=== PATIENT | female | born 1935 | race Caucasian/White ===

== ENCOUNTER 2016-06-21 16:53 | Emergency (ER) | payer MEDICARE, MEDICAID ==
[~2016-06-21] VITALS: Ht 154.9 cm; Wt 59.0 kg
[~2016-06-21 16:53] MED LIST: ACE325RS; ACYC400T; AMIT25TA9 PO; AMITRIP; ASCO500C3; ATARAX; FENT12DI; FENT12DI TD; FLUO20CA19 PO; HYDR-3682 PO; HYDR200T36 PO; HYDR25CA; LAMOTIL; LEVO112T4 PO; LEVO125T6; LISI-206; LISI10TA6 PO; NOR5T; OME20GT; PANC12002; PREDPOW63 PO; PROZAC; QUESTRAN
[2016-06-21 17:30] VITALS: BP 97/52
[2016-06-21 19:59] LABS: Basophils # (auto) 0 uL; Basophils % (auto) 0.1 % (0.0-2.0); Eosinophils # (auto) 0.1 uL; Eosinophils % (auto) 0.5 % (0.0-7.0); Hematocrit 39.6 % (36.0-46.0); Lymphocytes # (auto) 1.2 uL; Lymphocytes % (auto) 8.8 % (10.0-50.0); Mean Corpuscular Hemoglobin 28.4 pg (28.0-32.0); Mean Corpuscular Hgb Conc. 32.7 g/dL (32.0-36.0); Mean Corpuscular Volume 86.6 fL (80.0-100.0); Mean Platelet Volume 9.4 fL (7.4-10.4); Monocytes % (auto) 7.5 % (0.0-12.0); Neutrophils # (auto) 11.4 uL; Neutrophils % (auto) 83.1 % (37.0-80.0); Platelet Count (auto) 301 10^3/uL (140-450); Red Cell Distribution Width 15.5 % (11.6-16.0); White Blood Cell 13.7 10^3/uL (4.4-10.8)
[2016-06-21 20:07] LABS: Albumin 2.8 g/dL (3.4-5.0); BUN/Creatinine Ratio 17.1; Calcium 7.9 mg/dL (8.5-10.1); Potassium 4.3 mmol/L (3.5-5.1)
[2016-06-21 20:12] LABS: Bilirubin, Total 0.2 mg/dL (0.2-1.0); Total Protein 6.3 g/dL (6.4-8.2)
== END 2016-06-21 19:58 | disposition left against medical advice (07) ==
LOC: ER 16:53 → EDBD 16:53 → ER 19:48
DX: R19.7 Diarrhea, unspecified (principal); I95.9 Hypotension, unspecified; Z53.21 Procedure and treatment not carried out due to patient leaving prior to being seen by health care provider
CPT/HCPCS: 36415; 80053; 84484; 85025; 93005

== ENCOUNTER 2023-10-26 15:42 | Inpatient (IN) | payer MEDICARE, MEDICAID ==
[~2023-10-26] VITALS: Ht 167.6 cm; Wt 55.0 kg
[~2023-10-26 15:42] MED LIST changes: -ACYC400T; +AMIT25TA20 PO; -AMIT25TA9 PO; -AMITRIP; -ATARAX; -FENT12DI; -FENT12DI TD; -LAMOTIL; -LEVO112T4 PO; -LEVO125T6; +LEVO125T7; -LISI-206; +LISI-710; -LISI10TA6 PO; -NOR5T; -PREDPOW63 PO; -PROZAC; -QUESTRAN
[2023-10-26 17:59] LABS: Basophils # (auto) 0.1 10 ^3/uL (0-0.2); Basophils % (auto) 1.2 % (0.0-2.0); Eosinophils # (auto) 0.2 10 ^3/uL (0-0.8); Eosinophils % (auto) 2.6 % (0.0-7.0); Hematocrit 38.4 % (36.0-46.0); Hemoglobin 13.1 g/dL (12.2-16.2); Lymphocytes # (auto) 2.2 10 ^3/uL (0.4-5.4); Lymphocytes % (auto) 25.4 % (10.0-50.0); Mean Corpuscular Hemoglobin 29.8 pg (28.0-32.0); Mean Corpuscular Hgb Conc. 34.1 g/dL (32.0-36.0); Mean Corpuscular Volume 87.5 fL (80.0-100.0); Monocytes # (auto) 1.2 10 ^3/uL (0-1.3); Monocytes % (auto) 13.5 % (0.0-12.0); Neutrophils # (auto) 4.9 10 ^3/uL (1.6-8.6); Neutrophils % (auto) 57.3 % (37.0-80.0); Nucleated Red Blood Cells % 0.1 %; Red Blood Cells 4.39 10^6/uL (4.0-5.20); White Blood Cell 8.6 10^3/uL (4.4-10.8)
[2023-10-26 18:10] LABS: Chloride 106 mmol/L (98-107); Potassium 3.9 mmol/L (3.5-5.1); Sodium 133 mmol/L (136-145)
[2023-10-26 18:11] LABS: Anion Gap 7 (5-15); Calcium 9.5 mg/dL (8.7-10.4); Carbon Dioxide 20 mmol/L (20-30)
[2023-10-26 18:16] LABS: BUN/Creatinine Ratio 16.7 (10.0-20.0); Blood Urea Nitrogen 16 mg/dL (9-23); Glucose 93 mg/dL (74-106)
[2023-10-26] MEDS: SODIUM CHLORIDE 0.9% 1,000 ML IV ONE (19:30)
[2023-10-26 19:45] VITALS: PULSE 109; RESP 26; O2SAT 96
[2023-10-26] MEDS: ERTAPENEM SOD INJ 1 GM in SODIUM CHL 0.9% 50 ML IV ONE (19:53)
[2023-10-26] MEDS ORDERED: DOCUSATE SOD 100 MG CAP PO PRN (20:30)
[2023-10-26] MEDS ORDERED: ONDANSETRON HCL 4 MG/2 ML VIAL IV PRN (20:30)
[2023-10-26] MEDS ORDERED: HYDROmorphone HCL 2 MG/ML VL/or syr IV PRN (20:30)
[2023-10-26] MEDS: SODIUM CHLOR 0.9% PF (SALINE LOCK) 10ML VIAL/SYR IV SCH (22:00)
[2023-10-27 06:19] LABS: Urine Bacteria MOD /hpf (None Seen); Urine Blood 2+ /uL (Negative); Urine Clarity Turbid (Clear); Urine Color Light-Yellow (Yellow); Urine Protein, UAD 1+ (Negative); Urine Specific Gravity 1.015 (1.001-1.035); Urine Urobilinogen Normal (Negative); Urine WBC 17 /hpf (0 - 5); Urine pH 6.5 (5.0-9.0)
[2023-10-27 07:06] LABS: Basophils # (auto) 0.2 10 ^3/uL (0-0.2); Basophils % (auto) 2.2 % (0.0-2.0); Eosinophils # (auto) 0.2 10 ^3/uL (0-0.8); Eosinophils % (auto) 3.2 % (0.0-7.0); Hemoglobin 12.7 g/dL (12.2-16.2); Lymphocytes # (auto) 1.6 10 ^3/uL (0.4-5.4); Lymphocytes % (auto) 23.5 % (10.0-50.0); Mean Corpuscular Hemoglobin 30.3 pg (28.0-32.0); Mean Corpuscular Hgb Conc. 34.4 g/dL (32.0-36.0); Monocytes # (auto) 0.9 10 ^3/uL (0-1.3); Monocytes % (auto) 12.9 % (0.0-12.0); Neutrophils % (auto) 58.2 % (37.0-80.0); Nucleated Red Blood Cells % 0.1 %; Red Cell Distribution Width 16.9 % (11.8-14.3); White Blood Cell 6.9 10^3/uL (4.4-10.8)
[2023-10-27 07:14] LABS: Alanine Aminotransferase 17 U/L (7-40); Albumin 3.8 g/dL (3.2-4.8); Alkaline Phosphatase 106 U/L (46-116); Anion Gap 7 (5-15); Aspartate Aminotransferase 16 U/L (13-40); BUN/Creatinine Ratio 16.3 (10.0-20.0); Blood Urea Nitrogen 14 mg/dL (9-23); Calcium 9.2 mg/dL (8.7-10.4); Carbon Dioxide 22 mmol/L (20-30); Chloride 108 mmol/L (98-107); Glucose 95 mg/dL (74-106); Potassium 3.6 mmol/L (3.5-5.1); Sodium 137 mmol/L (136-145)
[2023-10-27 07:15] LABS: Bilirubin, Total 0.5 mg/dL (0.2-1.0); Total Protein 6.8 g/dL (5.7-8.2)
[2023-10-27 08:00] VITALS: PULSE 99
[2023-10-27] MEDS: ENOXAPARIN SOD 40 MG/0.4 ML SYRINGE SC SCH (10:00)
[2023-10-27 11:50] VITALS: BP 120/69; PULSE 108; RESP 18; TEMP 98.1; O2SAT 97
[2023-10-27] MEDS ORDERED: TRAZ-227 PO (15:28)
[2023-10-27] MEDS ORDERED: PANT40TA57 PO (15:28)
[2023-10-27] MEDS ORDERED: AMLO1TAB22 PO (15:28)
[2023-10-27] MEDS ORDERED: SIMV10TA20 PO (15:28)
[2023-10-27] MEDS ORDERED: MEGE40TA4 PO (15:28)
[2023-10-27] MEDS ORDERED: NORT25CA PO (15:28)
[2023-10-27] MEDS ORDERED: SODI325T PO (15:31)
[2023-10-27 17:12] VITALS: BP 147/85; PULSE 101; RESP 16; TEMP 98.1; O2SAT 95
[2023-10-27] MEDS: PANTOPRAZOLE 40 MG TAB PO SCH (18:06)
[2023-10-27] MEDS: SODIUM BICARBONATE 650 MG TAB PO SCH (18:07)
[2023-10-27] MEDS: amLODIPine BESYLATE 5 MG TAB PO SCH (18:08)
[2023-10-27 20:00] VITALS: PULSE 90
[2023-10-27] MEDS: cefTRIAXone 1GM/50ML D5W 50 ML IV SCH (20:21)
[2023-10-27] MEDS: traZODone HCL 50 MG TAB PO SCH (21:56)
[2023-10-27] MEDS: NORTRIPTYLINE HCL 25 MG CAP PO SCH (21:58)
[2023-10-27 22:00] VITALS: BP 145/77; PULSE 99; RESP 22; TEMP 99; O2SAT 95
[2023-10-28] VITALS (10 sets, daily range): BP systolic 125–147; BP diastolic 66–80; PULSE 65–115; RESP 17–20; TEMP 97.6–98.9; O2SAT 96–98
[2023-10-28] MEDS: LEVOTHYROXINE SODIUM 50 MCG TAB PO SCH (09:39)
[2023-10-28 23:46] LABS: Chloride 106 mmol/L (98-107); Sodium 135 mmol/L (136-145)
[2023-10-28 23:47] LABS: Anion Gap 9 (5-15); Calcium 9.5 mg/dL (8.7-10.4); Carbon Dioxide 20 mmol/L (20-30)
[2023-10-28 23:52] LABS: BUN/Creatinine Ratio 11.7 (10.0-20.0); Blood Urea Nitrogen 11 mg/dL (9-23); Glucose 98 mg/dL (74-106); Magnesium 2.2 mg/dL (1.6-2.6)
[2023-10-29] VITALS (8 sets, daily range): BP systolic 107–150; BP diastolic 74–87; PULSE 77–105; RESP 18–20; TEMP 97.6–98.2; O2SAT 94–100
[2023-10-29] MEDS: ACETAMINOPHEN 325 MG TAB PO PRN (16:26)
[2023-10-29] MEDS: Ensure HIGH Protein Chocolate 8oz Bottle PO SCH (18:00)
[2023-10-30 05:00] VITALS: BP 144/72; PULSE 107; RESP 18; TEMP 98; O2SAT 98
[2023-10-30 08:00] VITALS: PULSE 105; PULSE 97; RESP 18; O2SAT 99
[2023-10-30 08:43] VITALS: BP 154/86; PULSE 105; RESP 16; TEMP 97.6; O2SAT 98
[2023-10-30 12:45] VITALS: BP 156/82; PULSE 101; RESP 14; TEMP 97.5; O2SAT 100
[2023-10-30 16:00] VITALS: BP 148/86; PULSE 100; RESP 24; TEMP 99.7; O2SAT 94
[2023-10-30 20:00] VITALS: PULSE 96
[2023-10-31 01:00] VITALS: BP 129/72; PULSE 75; RESP 18; O2SAT 93
[2023-10-31 05:00] VITALS: BP 111/72; PULSE 81; RESP 19; TEMP 97.7; O2SAT 96
[2023-10-31 08:00] VITALS: PULSE 114
[2023-10-31 09:05] VITALS: BP 140/60; PULSE 80; RESP 16; TEMP 97.6; O2SAT 92
[2023-10-31 13:29] VITALS: BP 113/72; PULSE 104; RESP 16; TEMP 97.7; O2SAT 95
== END 2023-10-31 14:20 | disposition hospice, home (50) | DRG 871 ==
LOC: EDBD 15:42 → ER 15:42 → OVERFLOW 20:42 → WEST WING 10-27 11:25 → TELE-WESTW 10-27 19:18
PROVIDERS: ADMIT Internal Medicine; ATTEND Internal Medicine Geriatric Medicine
DX: A41.9 Sepsis, unspecified organism (principal); G93.41 Metabolic encephalopathy; E44.0 Moderate protein-calorie malnutrition; Z68.1 Body mass index [BMI] 19.9 or less, adult; N39.0 Urinary tract infection, site not specified; E03.9 Hypothyroidism, unspecified; E78.00 Pure hypercholesterolemia, unspecified; F32.A Depression, unspecified; I12.9 Hypertensive chronic kidney disease with stage 1 through stage 4 chronic kidney disease, or unspecified chronic kidney disease; Z66 Do not resuscitate; I49.3 Ventricular premature depolarization; D64.9 Anemia, unspecified; N18.9 Chronic kidney disease, unspecified; F03.90 Unspecified dementia, unspecified severity, without behavioral disturbance, psychotic disturbance, mood disturbance, and anxiety; Z74.01 Bed confinement status; Z88.0 Allergy status to penicillin; Z91.018 Allergy to other foods; Z79.899 Other long term (current) drug therapy; Z87.891 Personal history of nicotine dependence; Z86.73 Personal history of transient ischemic attack (TIA), and cerebral infarction without residual deficits; Z90.710 Acquired absence of both cervix and uterus
CPT/HCPCS: 36415; 71045; 80048; 80053; 80061; 81001; 83605; 83735; 84443; 85025; 87040; 87086; 93005; 93306; 96365; G0378; J1335